=== PATIENT | male | born 1955 | race Two or more races ===

== ENCOUNTER 2022-09-17 16:21 | Inpatient (IN) | payer OTHER ==
[~2022-09-17] VITALS: Ht 180.3 cm; Wt 95.3 kg
[~2022-09-17 16:21] MED LIST: PROVENTIL2.5 MG/3 M IH; VASOTEC10 MG NGT
[2022-09-19] MEDS ORDERED: SYNTHROID50 MCG PO (07:39)
[2022-09-19] MEDS ORDERED: COZAAR50 MG PO (07:40)
[2022-09-19] MEDS ORDERED: NEXIUM40 M1 PO (07:40)
[2022-09-19] MEDS ORDERED: TOPROL XL25 M1 PO (07:40)
[2022-09-19] MEDS ORDERED: WELLBUTRIN SR150 MG PO (07:41)
[2022-09-19] MEDS ORDERED: ZYRTEC10 M3 PO (07:41)
[2022-09-19] MEDS ORDERED: FLONASE16 GM IH (07:42)
[2022-09-19] MEDS ORDERED: SYMBIC IH (07:42)
[2022-09-19] MEDS ORDERED: TRANXENE T-TAB7.5 MG PO (07:43)
[2022-09-19] MEDS ORDERED: LIPI PO (07:43)
[2022-09-19] MEDS ORDERED: CELEBREX200MG PO (07:44)
[2022-09-19] MEDS ORDERED: ALBUTEROL IH (07:44)
[2022-09-25] MEDS ORDERED: ATORVASTATIN CA10 MG (08:52)
[2022-09-25] MEDS ORDERED: ALLERGY RELIE15.8 ML (08:53)
[2022-09-25] MEDS ORDERED: ALBUTEROL0.63 MG/3 (08:54)
[2022-09-25] MEDS ORDERED: PROVENTIL HFA6.7 GM (08:55)
[2022-09-25] MEDS ORDERED: SYMBICORT 16010.2 GM (08:55)
[2022-09-26] MEDS ORDERED: PERCOCET 5-3251 EACH PO (08:32)
[2022-09-26] MEDS ORDERED: CIPRO500 MG PO (08:32)
[2022-09-26] MEDS ORDERED: ELIQUIS2.5 MG PO (08:32)
[2022-09-26] MEDS ORDERED: ACETAMINOPHEN-1 EAC2 PO (08:37)
== END 2022-09-27 17:26 | DRG 470 ==
LOC: O/R 09-25 05:10 → SURG 09-25 05:10 → SURH 09-25 07:00 → SURG 09-25 13:25
PROVIDERS: ADMIT Orthopaedic Surgery; ATTEND Orthopaedic Surgery
PROC: 0SRC0J9 Replacement of Right Knee Joint with Synthetic Substitute, Cemented, Open Approach (ICD-10-PCS; principal; 2022-09-25 07:00)
PROC: 3E0F7GC Introduction of Other Therapeutic Substance into Respiratory Tract, Via Natural or Artificial Opening (ICD-10-PCS; 2022-09-26)
DX: M17.11 Unilateral primary osteoarthritis, right knee (principal); M22.11 Recurrent subluxation of patella, right knee; J45.998 Other asthma; I10 Essential (primary) hypertension; E03.9 Hypothyroidism, unspecified

== ENCOUNTER 2023-07-15 07:09 | Outpatient (CLI) | payer OTHER ==
[~2023-07-15 07:09] MED LIST changes: +ACETAMINOPHEN-1 EAC2 PO; +ALBUTEROL IH; +ALBUTEROL0.63 MG/3; +ALLERGY RELIE15.8 ML; +ATORVASTATIN CA10 MG; +CELEBREX200MG PO; +CIPRO500 MG PO; +COZAAR50 MG PO; +ELIQUIS2.5 MG PO; +FLONASE16 GM IH; +LIPI PO; +NEXIUM40 M1 PO; +PERCOCET 5-3251 EACH PO; +PROVENTIL HFA6.7 GM; +SYMBIC IH; +SYMBICORT 16010.2 GM; +SYNTHROID50 MCG PO; +TOPROL XL25 M1 PO; +TRANXENE T-TAB7.5 MG PO; +WELLBUTRIN SR150 MG PO; +ZYRTEC10 M3 PO
== END 2023-07-15 07:10 | disposition home or self-care (01) ==
LOC: NUCLEAR 07:09
PROVIDERS: ATTEND Specialist
DX: I11.9 Hypertensive heart disease without heart failure (principal); I25.9 Chronic ischemic heart disease, unspecified
CPT/HCPCS: 78452; 93017; A9500